=== PATIENT | male | born 1985 | race Hispanic/Latino ===

== ENCOUNTER 2018-11-20 14:27 | Emergency (ER) | payer OTHER ==
[2018-11-20] MEDS ORDERED: ZOFRAN IV ONE (14:32)
[2018-11-20] MEDS ORDERED: NACL 0.9% 1000 ML 1,000 ML IV ONE (14:32)
--- NOTE | 2018-11-20 14:32 | Emergency Department Report ---
Blank Doc - Documentation Documentation: This is a 33-year-old male that presents with abdominal pain and N/V. This initial assessment/diagnostic orders/clinical plan/treatment(s) is/are subject to change based on patient's health status, clinical progression and re- assessment by fellow clinical providers in the ED. Further treatment and workup at subsequent clinical providers discretion. Patient/guardians urged not to elope from the ED as their condition may be serious if not clinically assessed and managed. Initial orders include: 1- Patient sent to [facility] for further evaluation and treatment 2- labs 3- UA
[2018-11-20 15:24] LABS: Alanine Aminotransferase 64 units/L (7-56); Albumin 4.8 g/dL (3.9-5); BUN/Creatinine Ratio 24; Blood Urea Nitrogen 17 mg/dL (9-20); Hemolysis Index 85
[2018-11-20 15:28] LABS: Bilirubin,Direct < 0.2 mg/dL (0-0.2)
[2018-11-20] MEDS ORDERED: TORADOL IV ONE (15:31)
--- NOTE | 2018-11-20 15:32 | Emergency Department Report ---
ED Abdominal Pain HPI - General Chief Complaint: Abdominal Pain Stated Complaint: VOMITING/DIZZY Time Seen by Provider: 11/20/18 14:31 Source: patient Mode of arrival: Ambulatory Limitations: No Limitations - History of Present Illness Initial Comments: She is a 33-year-old male who comes to the ER with complaints of nausea vomiting diarrhea and abdominal pain since early this morning. He states that he is weak and dizzy. Patient is visiting from out of town. He states that his 2 young children have had the same symptoms. On admission he is ambulatory, afebrile, but tachycardic at a rate of 113. Patient denies any significant medical history. He has no surgical history. He does not take any home medications on a routine basis. Denies alcohol or drugs or cigarette use. Severity scale (0 -10): 4 - Related Data Previous Rx's Medication Instructions Recorded Last Taken Type Ondansetron [Zofran Odt] 4 mg PO Q8HR PRN #10 tab.rapdis 11/20/18 Unknown Rx Allergies Allergy/AdvReac Type Severity Reaction Status Date / Time No Known Allergies Allergy Unverified 11/20/18 14:29 ED Review of Systems ROS: Stated complaint: VOMITING/DIZZY Other details as noted in HPI Comment: All other systems reviewed and negative ED Past Medical Hx - Past Medical History Previous Medical History?: No - Surgical History Past Surgical History?: No - Family History Family history: no significant - Social History Smoking Status: Never Smoker Substance Use Type: Alcohol - Medications Home Medications: Home Medications Medication Instructions Recorded Confirmed Last Taken Type Ondansetron [Zofran Odt] 4 mg PO Q8HR PRN #10 tab.rapdis 11/20/18 Unknown Rx ED Physical Exam - General Limitations: No Limitations General appearance: alert - Head Head exam: Present: atraumatic, normocephalic - Eye Eye exam: Present: normal appearance, PERRL - ENT ENT exam: Present: mucous membranes moist - Neck Neck exam: Present: normal inspection - Respiratory Respiratory exam: Present: normal lung sounds bilaterally - Cardiovascular Cardiovascular Exam: Present: regular rate, tachycardia - GI/Abdominal GI/Abdominal exam: Present: soft, normal bowel sounds - Rectal Rectal exam: Present: deferred - Extremities Exam Extremities exam: Present: normal inspection, full ROM - Back Exam Back exam: Present: normal inspection, full ROM - Neurological Exam Neurological exam: Present: alert, oriented X3, CN II-XII intact - Psychiatric Psychiatric exam: Present: normal affect, normal mood - Skin Skin exam: Present: warm, dry, intact ED Course Vital Signs 11/20/18 11/20/18 11/20/18 14:30 15:41 16:10 Temperature 98.2 F Pulse Rate 113 H Respiratory 18 17 18 Rate Blood Pressure 128/90 O2 Sat by Pulse 98 Oximetry - Reevaluation(s) Reevaluation #1: 11/20/18 18:01 HR 90 FEELING BETTER TAKING PO ED Medical Decision Making - Lab Data Result diagrams: 11/20/18 14:40 11/20/18 14:40 - Medical Decision Making Labs 11/20/18 11/20/18 14:40 14:40 WBC 11.5 H RBC 5.14 H Hgb 15.6 H Hct 45.9 H MCV 89 MCH 30 MCHC 34 RDW 13.5 Plt Count 302 Add Manual Diff Complete Total Counted 100 Seg Neutrophils % Carburetor Rebuilder Seg Neuts % (Manual) 92.0 H Band Neutrophils % 0 Lymphocytes % (Manual) 4.0 L Reactive Lymphs % (Man) 0 Monocytes % (Manual) 4.0 Eosinophils % (Manual) 0 Basophils % (Manual) 0 Metamyelocytes % 0 Myelocytes % 0 Promyelocytes % 0 Blast Cells % 0 Nucleated RBC % Not Reportable Seg Neutrophils # Man 10.6 H Band Neutrophils # 0.0 Lymphocytes # (Manual) 0.5 L Abs React Lymphs (Man) 0.0 Monocytes # (Manual) 0.5 Eosinophils # (Manual) 0.0 Basophils # (Manual) 0.0 Metamyelocytes # 0.0 Myelocytes # 0.0 Promyelocytes # 0.0 Blast Cells # 0.0 WBC Morphology Not Reportable Hypersegmented Neuts Not Reportable Hyposegmented Neuts Not Reportable Hypogranular Neuts Not Reportable Smudge Cells Not Reportable Toxic Granulation Not Reportable Toxic Vacuolation Not Reportable Dohle Bodies Not Reportable Pelger-Huet Anomaly Not Reportable Lynne Rods Not Reportable Platelet Estimate Not Reportable Clumped Platelets Not Reportable Plt Clumps, EDTA Not Reportable Large Platelets Not Reportable Giant Platelets Not Reportable Platelet Satelliting Not Reportable Plt Morphology Comment Not Reportable RBC Morphology Normal Dimorphic RBCs Not Reportable Polychromasia Not Reportable Hypochromasia Not Reportable Poikilocytosis Not Reportable Anisocytosis Not Reportable Microcytosis Not Reportable Macrocytosis Not Reportable Spherocytes Not Reportable Pappenheimer Bodies Not Reportable Sickle Cells Not Reportable Target Cells Not Reportable Tear Drop Cells Not Reportable Ovalocytes Not Reportable Helmet Cells Not Reportable Nieves-Goff Bodies Not Reportable Arley Rings Not Reportable [place] Cells Not Reportable Bite Cells Not Reportable Crenated Cell Not Reportable Elliptocytes Not Reportable Acanthocytes (Spur) Not Reportable Rouleaux Not Reportable Hemoglobin C Crystals Not Reportable Schistocytes Not Reportable Malaria parasites Not Reportable Guillermo Bodies Not Reportable Hem Pathologist Commnt No Sodium 139 Potassium 4.9 Chloride 103.9 Carbon Dioxide 18 L Anion Gap 22 BUN 17 Creatinine 0.7 L Estimated GFR > 60 BUN/Creatinine Ratio 24 Glucose 110 H Calcium 10.0 Total Bilirubin 0.70 Direct Bilirubin < 0.2 Indirect Bilirubin 0.5 AST 36 ALT 64 H Alkaline Phosphatase 56 Total Protein 7.6 Albumin 4.8 Albumin/Globulin Ratio 1.7 Lipase 18 Vital Signs 11/20/18 11/20/18 11/20/18 14:30 15:41 16:10 Temperature 98.2 F Pulse Rate 113 H Respiratory 18 17 18 Rate Blood Pressure 128/90 O2 Sat by Pulse 98 Oximetry 1l NS, ZOFRAN, BENTYL, TORADOL AND PT REPORTS FEELING BETTER. LABS NOTED WILL DC HOME WITH DC PLAN OF CARE. Critical care attestation.: If time is entered above; I have spent that time in minutes in the direct care of this critically ill patient, excluding procedure time. ED Disposition Clinical Impression: Gastroenteritis Disposition: DC-01 TO HOME OR SELFCARE Is pt being admited?: No Does the pt Need Aspirin: No Condition: Stable Instructions: Gastroenteritis (ED) Additional Instructions: HYDRATE WELL WITH WATER MEDS ORDERED TODAY ADVANCE DIET TOLERATED FOLLOW UP WITH PCP Prescriptions: Ondansetron [Zofran Odt] 4 mg PO Q8HR PRN #10 tab.rapdis PRN Reason: Vomiting Referrals: PRIMARY CARE, [Primary Care Provider] - 3-5 Days [facility] [Outside] - 3-5 Days Time of Disposition: 17:48
[2018-11-20 15:42] LABS: Hematocrit 45.9 % (35.5-45.6); Hemoglobin 15.6 gm/dl (11.8-15.2); Mean Corpuscular HGB Conc 34 % (32-34); Mean Corpuscular Volume 89 fl (84-94); Platelet Count 302 K/mm3 (140-440); Red Blood Count 5.14 M/mm3 (3.65-5.03); Red Cell Distribution Width 13.5 % (13.2-15.2)
[2018-11-20 16:26] LABS: Basophils % (Manual) 0 % (0.0-1.8); Eosinophils % (Manual) 0 % (0.0-4.3); Total Cells Counted 100
[2018-11-20 16:27] LABS: RBC Morphology Normal
[2018-11-20] MEDS ORDERED: BENTYL PO ONE (16:32)
[2018-11-20] MEDS ORDERED: ZOFRAN ODT PO ONE (17:51)
[2018-11-20] MEDS ORDERED: IBUPROFEN PO ONE (17:51)
[2018-11-20 18:22] VITALS: BP 126/68
[2018-11-20 18:26] LABS: Bilirubin,Urine NEG (Negative); Blood,Urine NEG (Negative); Color,Urine Yellow (Yellow); Mucus,Urine 2+ /HPF; Protein,Urine <15 mg/dL mg/dL (Negative); Urobilinogen,Urine < 2.0 mg/dL (<2.0)
== END 2018-11-20 18:47 | disposition home or self-care (01) ==
LOC: ED 14:27
DX: K52.9 Noninfective gastroenteritis and colitis, unspecified (principal)
CPT/HCPCS: 36415; 80048; 80076; 81001; 83690; 85007; 85025; 96361; 96374; 96375; 99283; J1885; J2405; J7030; Q0162